=== PATIENT | male | born 1965 | race Hispanic/Latino ===

== ENCOUNTER 2017-09-03 02:02 | Emergency (ER) | payer MEDICAID, MEDICARE ==
[2017-09-03 02:03] VITALS: BMI 27.3
[2017-09-03 02:43] VITALS: RESP 18
[2017-09-03] MEDS ORDERED: TDAP Vaccine 0.5 mL Syr IM ONE (03:13)
[2017-09-03] MEDS ORDERED: Oxycodone/Acetaminophen 5/325 mg Tab PO STA (03:14)
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
[2017-09-03 06:52] VITALS: BP 106/60; PULSE 69; TEMP 97.7; O2SAT 97
--- NOTE | 2017-09-03 09:03 | RAD ---
PROCEDURE: Left Hand Radiographs. HISTORY: trauma to left hand; rule out fracture COMPARISON: None. FINDINGS: BONES: No acute fracture noted. Deformity of the 4th proximal phalanx consistent with old remote pathology and/or injury here. No gross erosions. JOINTS: Mild osteoarthrosis. The appearance of the 3rd DIP osseous hypertrophic changes are attributed to arthrosis. No prominent soft tissue swelling here. No trauma site specified SOFT TISSUES: Normal. OTHER FINDINGS: None. IMPRESSION: No acute fracture lines. No dislocation. Fourth proximal phalangeal appearance consistent with remote trauma/ remote pathology here. Osteoarthrosis
== END 2017-09-03 06:49 | disposition home or self-care (01) ==
LOC: ED 02:02
DX: Z51.89 Encounter for other specified aftercare (principal); M79.671 Pain in right foot; Z87.891 Personal history of nicotine dependence; Z23 Encounter for immunization
CPT/HCPCS: 73130; 90471; 90715; 96372; 99285; J1885

== ENCOUNTER 2018-02-03 13:11 | Emergency (ER) | payer MEDICARE, MEDICAID ==
[2018-02-03 13:12] VITALS: BMI 27.3
[2018-02-03 13:45] VITALS: TEMP 97.9
[2018-02-03] MEDS ORDERED: Sodium Chloride 0.9% 1,000 ML IV STA (14:15)
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
--- NOTE | 2018-02-03 15:08 | US ---
HISTORY: ap COMPARISON: None. TECHNIQUE: Sonographic evaluation of the abdomen. FINDINGS: LIVER: Measures 14.5 x 9.2 x 15.9 cm. Normal echogenicity of the liver parenchyma. No mass. No intrahepatic bile duct dilatation. GALLBLADDER: Unremarkable. No gallstones. COMMON BILE DUCT: Measures 4.8 mm. No stones. No dilatation. PANCREAS: Pancreas is completely obscured by overlying bowel gas. RIGHT KIDNEY: Measures 9.7cm. Normal echogenicity. No calculus, mass, or hydronephrosis. LEFT KIDNEY: Measures 11.0cm. Normal echogenicity. No calculus, mass, or hydronephrosis. SPLEEN: Normal in size and contour, 10.0 cm greatest dimension. No mass. AORTA: No aneurysmal dilatation. IVC: Unremarkable. OTHER FINDINGS: None. IMPRESSION: Pancreas is completely obscured by overlying bowel gas with remainder of the abdomen ultrasound exam unremarkable appearing.
[2018-02-03 15:21] VITALS: RESP 18; O2SAT 98
--- NOTE | 2018-02-03 15:33 | RAD ---
HISTORY: ap COMPARISON: 07/24/2016 FINDINGS: LUNGS: No active pulmonary disease. PLEURA: No significant pleural effusion identified, no pneumothorax apparent. CARDIOVASCULAR: Normal. OSSEOUS STRUCTURES: No significant abnormalities. VISUALIZED UPPER ABDOMEN: Normal. OTHER FINDINGS: None. IMPRESSION: No active disease.
[2018-02-03 15:39] LABS: BASO # 0.02 K/mm3 (0.0-2.0); BASO % 0.1 % (0.0-3.0); GRAN # 12.53 (1.4-6.5); GRAN % 90.7 % (50.0-68.0); HEMOGLOBIN 13.3 g/dL (14.0-18.0); LYMPH % 7.4 % (22.0-35.0); MEAN CELL VOLUME 83.6 fl (80.0-105.0); MEAN CORPUSCULAR HGB CONC 34.7 g/dl (31.0-37.0); MEAN PLATELET VOLUME 9.3 fl (7.0-11.0); MONO # 0.3 (0.1-0.6); MONO % 1.8 % (1.0-6.0); PLATELET COUNT 239 10^3/uL (120.0-450.0); RBC 4.58 10^6/uL (3.5-6.1); RED CELL DISTRIBUTION WIDTH 15.1 % (11.5-14.5); WHITE BLOOD COUNT 13.8 10^3/ul (4.5-11.0)
[2018-02-03 15:52] LABS: ALB/GLOB RATIO 1.2 (1.1-1.8); ALBUMIN 4.3 g/dL (3.0-4.8); CALCIUM 9.7 mg/dL (8.4-10.5)
[2018-02-03 16:07] LABS: LYMPHOCYTE 4 % (22.0-35.0); MONOCYTE 5 % (1.0-6.0); NEUTROPHIL 91 % (50.0-70.0)
[2018-02-03 17:04] VITALS: BP 148/89; PULSE 98
--- NOTE | 2018-02-03 17:06 | CT ---
PROCEDURE: CT Abdomen and Pelvis without intravenous contrast HISTORY: pain COMPARISON: None. TECHNIQUE: Without contrast. Contrast Dose: Radiation dose: Total exam DLP = Total exam DLP = 703 mGy-cm. This CT exam was performed using one or more of the following dose reduction techniques: Automated exposure control, adjustment of the mA and/or kV according to patient size, and/or use of iterative reconstruction technique. FINDINGS: LOWER THORAX: There is a dilated fluid-filled esophagus LIVER: Unremarkable. No gross lesion or ductal dilatation. GALLBLADDER AND BILE DUCTS: Unremarkable. PANCREAS: Unremarkable. No gross lesion or ductal dilatation. SPLEEN: Unremarkable. ADRENALS: Unremarkable. No mass. KIDNEYS AND URETERS: Unremarkable. No hydronephrosis. No solid mass. VASCULATURE: Unremarkable. No aortic aneurysm. BOWEL: Unremarkable. No obstruction. No gross mural thickening. APPENDIX: Unremarkable. Normal appendix. PERITONEUM: Unremarkable. No free fluid. No free air. LYMPH NODES: Unremarkable. No enlarged lymph nodes. BLADDER: Unremarkable. REPRODUCTIVE: Unremarkable. BONES: No acute fracture. OTHER FINDINGS: None. IMPRESSION: No acute findings
--- NOTE | 2018-02-03 17:34 | RAD ---
HISTORY: pain COMPARISON: No prior. FINDINGS: BOWEL: Normal. No obstruction. No free air. BONES: Normal. OTHER FINDINGS: None. IMPRESSION: No active disease.
== END 2018-02-03 17:45 | disposition home or self-care (01) ==
LOC: ED 13:11
DX: E86.0 Dehydration (principal); D64.9 Anemia, unspecified; D72.829 Elevated white blood cell count, unspecified; N19 Unspecified kidney failure; R11.2 Nausea with vomiting, unspecified; R10.9 Unspecified abdominal pain; F17.210 Nicotine dependence, cigarettes, uncomplicated
CPT/HCPCS: 71045; 74019; 74176; 76700; 80053; 83690; 85025; 96374; 96375; 99283; C9113; J1885; J2405; J7040

== ENCOUNTER 2018-04-27 03:19 | Emergency (ER) | payer MEDICARE, MEDICAID ==
[2018-04-27 03:20] VITALS: BMI 27.3
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
[2018-04-27] MEDS ORDERED: Morphine 2 mg/ml ISec IM STA (05:24)
[2018-04-27 05:34] LABS: ALB/GLOB RATIO 1.2 (1.1-1.8); ALBUMIN 4.1 g/dL (3.0-4.8); ALT/SGPT 41 U/L (7-56); AST/SGOT 27 U/L (17-59); BLOOD UREA NITROGEN 18 mg/dL (7-21); CALCIUM 8.8 mg/dL (8.4-10.5); GFR AFRICAN-AMERICAN > 60; GFR NON-AFRICAN AMERICAN > 60; HEMOGLOBIN 13.6 g/dL (14.0-18.0); RBC 4.86 10^6/uL (3.5-6.1); WHITE BLOOD COUNT 7.6 10^3/ul (4.5-11.0)
[2018-04-27 05:35] LABS: ACETAMINOPHEN < 10.0 ug/ml (10.0-20.0); BASO # 0.04 K/mm3 (0.0-2.0); BASO % 0.5 % (0.0-3.0); EOS # 0.2 (0.0-0.7); EOS % 2.8 % (1.5-5.0); GRAN # 4.49 (1.4-6.5); GRAN % 59.4 % (50.0-68.0); LYMPH # 2.1 (1.2-3.4); LYMPH % 27.4 % (22.0-35.0); MEAN CELL VOLUME 82.9 fl (80.0-105.0); MEAN CORPUSCULAR HGB CONC 33.8 g/dl (31.0-37.0); MEAN PLATELET VOLUME 9.7 fl (7.0-11.0); MONO # 0.8 (0.1-0.6); MONO % 9.9 % (1.0-6.0); RED CELL DISTRIBUTION WIDTH 15.3 % (11.5-14.5); SALICYLATE < 1 mg/dL (2.0-20.0)
[2018-04-27 06:15] VITALS: O2SAT 98
--- NOTE | 2018-04-27 07:09 | ED PDOC ---
Physical Exam Vital Signs Reviewed: Yes Vital Signs Temp Pulse Resp BP Pulse Ox 04/27/18 06:14 98.6 F 76 20 128/81 98 04/27/18 03:25 98.1 F 78 18 128/74 99 Temperature: Afebrile Blood Pressure: Normal Pulse: Regular Respiratory Rate: Normal Medical Decision Making ED Course and Treatment: 04/27/18 07:08 Patient endorsed to me by Dr. Kent, pending CT results and disposition. Patient cleared by PES to be discharged home and follow up with [facility]. Report Date: 04/27/18 07:31 EXAM: CT Right Lower Extremity Without Intravenous Contrast, Foot Dictated and Authenticated by: Simon Chinchilla MD IMPRESSION: 1. Small plantar calcaneal spur noted. 2. A cystic focus within the subarticular portion of the calcaneus at the level of the posterior subtalar joint compatible with osteoarthritis. The overlying strut of bone demonstrates slight irregularity which may reflect an age indeterminate fracture or erosion involving the articular surface best demonstrated on coronal reformats.. 04/27/18 08:39 Case discussed with podiatry resident, who recommends outpatient follow up. Patient placed in splint and provided crutches. previous cleared by pes worker. 04/27/18 11:40 - Lab Interpretations Lab Results: 04/27/18 04:50 04/27/18 04:50 Lab Results 04/27/18 04:50: Alcohol, Quantitative < 10 04/27/18 04:50: Salicylates < 1 L, Acetaminophen < 10.0 L 04/27/18 04:50: Sodium 141, Potassium 4.1, Chloride 108 H, Carbon Dioxide 22, Anion Gap 16, BUN 18, Creatinine 1.1, Est GFR ( Amer) > 60, Est GFR (Non- Af Amer) > 60, Random Glucose 104, Calcium 8.8, Magnesium 2.2, Total Bilirubin 0.3, AST 27, ALT 41, Alkaline Phosphatase 99, Total Protein 7.4, Albumin 4.1, Globulin 3.3, Albumin/Globulin Ratio 1.2 04/27/18 04:50: WBC 7.6 D, RBC 4.86, Hgb 13.6 L, Hct 40.2 L, MCV 82.9, MCH 28.0 , MCHC 33.8, RDW 15.3 H, Plt Count 254, MPV 9.7, Gran % 59.4, Lymph % (Auto) 27.4, [place] % (Auto) 9.9 H, Eos % (Auto) 2.8, Baso % (Auto) 0.5, Gran # 4.49, Lymph # (Auto) 2.1, [place] # (Auto) 0.8 H, Eos # (Auto) 0.2, Baso # (Auto) 0.04 - RAD Interpretation Radiology Orders: 04/27/18 03:34 CHEST ONE VIEW [RAD] Stat HEEL RIGHT [RAD] Stat 04/27/18 05:00 EXT LOWER W/O CONTRAST RIGHT [CT] Stat - Medication Orders Current Medication Orders: Discontinued Medications Ketorolac Tromethamine (Toradol) 15 mg IM ONCE ONE Stop: 04/27/18 03:39 Last Admin: 04/27/18 03:59 Dose: 15 mg NEIL Pain Assessment Document 04/27/18 03:59 (Rec: 04/27/18 03:59 [id number]) Pain Reassessment Is this a pain reassessment? No Sleep Is patient sleeping during reassessment? No Presence of Pain Presence of Pain Yes Location Left, Right or Bilateral Right IM Administration Charges Document 04/27/18 03:59 (Rec: 04/27/18 03:59 [id number]) Charges for Administration # of IM Administrations 1 Ketorolac Tromethamine (Toradol) 15 mg IM STAT STA Stop: 04/27/18 07:45 Last Admin: 04/27/18 08:08 Dose: 15 mg NEIL Pain Assessment Document 04/27/18 08:08 (Rec: 04/27/18 08:08 MR [id number]) Pain Reassessment Is this a pain reassessment? Yes Sleep Is patient sleeping during reassessment? No Presence of Pain Presence of Pain Yes Pain Scale Used Pain Scale Used Numeric Location Left, Right or Bilateral Right Pain Location Body Site Foot Description Description Intermittent Intensity of Pain at present 7 Pain Behavior Facial Grimacing Alleviating Factors/Management Medication Techniques Alleviating Factors Medication IM Administration Charges Document 04/27/18 08:08 MR (Rec: 04/27/18 08:08 MR [id number]) Injection Site MAR Injection Site Right Deltoid Charges for Administration # of IM Administrations 1 Morphine Sulfate (Morphine) 2 mg IM STAT STA Stop: 04/27/18 05:25 Last Admin: 04/27/18 06:16 Dose: 2 mg MAR Pain Assessment Document 04/27/18 06:16 (Rec: 04/27/18 06:16 [id number]) Pain Reassessment Is this a pain reassessment? No Sleep Is patient sleeping during reassessment? No Presence of Pain Presence of Pain Yes Pain Scale Used Pain Scale Used Numeric IM Administration Charges Document 04/27/18 06:16 (Rec: 04/27/18 06:16 [id number]) Charges for Administration # of IM Administrations 1 Disposition/Present on Arrival - Present on Arrival Any Indicators Present on Arrival: No History of DVT/PE: No History of Uncontrolled Diabetes: No Urinary Catheter: No History of Decub. Ulcer: No History Surgical Site Infection Following: None - Disposition Have Diagnosis and Disposition been Completed?: Yes Diagnosis: Depression, Foot pain, right Disposition: HOME/ ROUTINE Disposition Time: 09:00 Condition: STABLE Discharge Instructions (ExitCare): Depression, Adult (DC), Foot Fracture (DC) Additional Instructions: please follow up with specialist in next 1- 2 days. return to er with worsening symptoms or concerns. Prescriptions: Naproxen 500 mg PO BID PRN #14 tablet PRN Reason: Pain, Mild (1-3) Referrals: [facility] [Outside] - Follow up with primary [facility] at [facility] [place] [Outside] - Follow up with primary Podiatry Clinic [Outside] - Follow up with primary Galen Albert MD [Staff Provider] - Follow up with primary Rachael Guy MD [Primary Care Provider] - Follow up with primary Forms: [employer] (Bahamian)
--- NOTE | 2018-04-27 09:08 | CP.PCM.PCO ---
Physician Communication Note - Physician Communication Note Physician Communication Note: Unable to assess patient due to being in the OR. Reviewed images.
[2018-04-27 09:33] VITALS: BP 128/79; PULSE 75; RESP 19; TEMP 98.1
--- NOTE | 2018-04-27 09:56 | RAD ---
PROCEDURE: CHEST RADIOGRAPH, 1 VIEW HISTORY: pes COMPARISON: 02/03/2018. FINDINGS: LUNGS: The lungs are well inflated and clear. PLEURA: No pneumothorax or pleural fluid seen. CARDIOVASCULAR: Normal. OSSEOUS STRUCTURES: No significant abnormalities. VISUALIZED UPPER ABDOMEN: Normal. OTHER FINDINGS: None. IMPRESSION: No active pulmonary disease.
--- NOTE | 2018-04-27 11:17 | RAD ---
PROCEDURE: Radiographs of the right calcaneus/hindfoot. HISTORY: trauma COMPARISON: None available. TECHNIQUE: Frontal and lateral radiographs of the calcaneus. FINDINGS: No acute fracture or joint dislocation. There is a prominent plantar calcaneal spur. No focal lesion. No calcaneal spur. IMPRESSION: No acute fracture or dislocation.
--- NOTE | 2018-04-27 12:26 | CT ---
PROCEDURE: HISTORY: heel pain COMPARISON: TECHNIQUE: FINDINGS: There are degenerative changes at the ankle mortise. A probable old fracture of the middle subtalar facet is observed with adjacent subchondral cysts as well as vacuum phenomenon in the posterior subtalar joint. A plantar heel spur is present there is an old fracture of the inferior lateral malleolus. There is no significant joint effusion. The remainder of the exam is unremarkable. IMPRESSION: Probable old fracture of the middle subtalar facet with vacuum phenomenon in the posterior subtalar joint and surrounding degenerative changes. Recommend further evaluation with MRI.
--- NOTE | 2018-04-27 22:46 | CARD ---
APPROVED REPORT EKG Measurement Heart [id number] <Conclusion> Normal sinus rhythm Normal ECG
== END 2018-04-27 08:45 | disposition home or self-care (01) ==
LOC: ED 03:19
DX: M79.671 Pain in right foot (principal); F32.9 Major depressive disorder, single episode, unspecified; F17.210 Nicotine dependence, cigarettes, uncomplicated
CPT/HCPCS: 71045; 73650; 73700; 80053; 83735; 85025; 90791; 93005; 96372; 99282; G0480; J1885; J2270

== ENCOUNTER 2018-07-09 09:32 | Emergency (ER) | payer MEDICAID, MEDICARE ==
[2018-07-09 09:33] VITALS: BMI 27.3
[2018-07-09 10:11] VITALS: TEMP 98
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
[2018-07-09 12:38] VITALS: O2SAT 98
[2018-07-09 12:40] VITALS: BP 127/84; PULSE 74; RESP 17
== END 2018-07-09 12:40 | disposition home or self-care (01) ==
LOC: ED 09:32
DX: M62.830 Muscle spasm of back (principal); F17.210 Nicotine dependence, cigarettes, uncomplicated
CPT/HCPCS: 96372; 99284; J1885